=== PATIENT | female | born 1950 | race African-American/Black ===

== ENCOUNTER 2016-06-21 20:26 | Emergency (ER) | payer MEDICARE ==
[~2016-06-21] VITALS: Ht 160 cm; Wt 61.2 kg
[~2016-06-21 20:26] MED LIST: AMLO5TAB4 PO; CALC500T27 PO; CYAN500T PO; LISI1TAB5 PO; MAGN400T3 PO; METO25TA2 PO; OMEP20CA9 PO; PRAV10TA2 PO; PROM6.25 PO
[2016-06-21 20:59] VITALS: BP 127/68
[2016-06-21] MEDS ORDERED: AMOX875T PO (21:51)
[2016-06-21] MEDS ORDERED: ACET-704 PO (21:51)
--- NOTE | 2016-06-21 21:51 | PHYS DOC ---
Past Medical History Past Medical History: High Cholesterol, Hypertension Past Surgical History: Hysterectomy Alcohol Use: Occasionally Drug Use: None Adult General Chief Complaint Chief Complaint: DENTAL PROBLEM HPI HPI Patient is a 65 year old female with history of hypertension high cholesterol who presents with a right lower gum dental pain and swelling that began yesterday, she is an appointment with her dentist on Friday this week. Patient denies any fever or trismus. Review of Systems Review of Systems Constitutional: See history of present illness Eyes: Denies change in visual acuity, redness, or eye pain [] HENT: right lower gum dental pain Musculoskeletal: Denies back pain or joint pain [] Integument: Denies rash or skin lesions [] Neurologic: Denies headache, focal weakness or sensory changes [] Endocrine: Denies polyuria or polydipsia [] Allergies Allergies Allergies Coded Allergies Type Severity Reaction Last Updated Verified No Known Drug Allergies 11/18/14 No Physical Exam Physical Exam Constitutional: Well developed, well nourished, no acute distress, non-toxic appearance. [] HENT: Normocephalic, atraumatic, bilateral external ears normal, oropharynx moist, no oral exudates, nose normal. [] Right exterior cheek with small amount of obvious swelling suspicions of a dental abscess. Right lower gum with small amount of diffuse swelling and trace erythema consistent with a dental abscess. No fluctuance noted. Eyes: PERRLA, EOMI, conjunctiva normal, no discharge. [] Skin: Warm, dry, no erythema, no rash. [] Back: No tenderness, no CVA tenderness. [] Extremities: No tenderness, no cyanosis, no clubbing, ROM intact, no edema. [] Neurologic: Alert and oriented X 3, normal motor function, normal sensory function, no focal deficits noted. [] Psychologic: Affect normal, judgement normal, mood normal. [] Current Patient Data Vital Signs Vital Signs Date Time Temp Pulse Resp B/P Pulse Ox O2 Delivery O2 Flow Rate FiO2 06/21/16 20:59 97.9 73 14 98 Room Air 97.9 EKG EKG [] Radiology/Procedures Radiology/Procedures [] Course & Med Decision Making Course & Med Decision Making Pertinent Labs and Imaging studies reviewed. (See chart for details) Patient is in the ED dental abscess, will be discharged with amoxicillin for 10 days and Tylenol 3. She has an appointment with her dentist on Friday. Elizabeth Disclaimer Elizabeth Disclaimer This electronic medical record was generated, in whole or in part, using a voice recognition dictation system. Departure Departure Impression: Primary Impression: Dentalgia Additional Impression: Dental abscess Disposition: HOME, SELF-CARE Condition: STABLE Referrals: MELVIN WARD MD (PCP) Follow-up with your dentist on Friday next week Patient Instructions: Dental Abscess Additional Instructions: You were seen for dental abscess. Take the prescribed medicines as ordered. Follow-up with your dentist next week. Ensure you complete your antibiotics. Scripts Acetaminophen With Codeine (Tylenol With Codeine #3 Tablet)1 Each Tablet1 Tab PO PRN Q4HRS PRN PAIN #30 TAB Prov:ALDAIR SCHWARZ [employer] POOL 06/21/16 Amoxicillin 875 Mg Tablet1 Tab PO BID #20 TAB Prov:ALDAIR SCHWARZ APRN 06/21/16 Problem Qualifiers ALDAIR SCHWARZ APRN Jun 21, 2016 21:51
== END 2016-06-21 22:04 | disposition home or self-care (01) ==
LOC: ER 20:26
DX: K04.7 Periapical abscess without sinus (principal); E78.00 Pure hypercholesterolemia, unspecified; I10 Essential (primary) hypertension
CPT/HCPCS: 99283